=== PATIENT | male | born 1950 | race Caucasian/White ===

== ENCOUNTER 2020-09-26 18:23 | Emergency (ER) | payer MEDICARE, BC ==
[~2020-09-26] VITALS: Ht 172.7 cm; Wt 74.1 kg
[2020-09-26 18:43] VITALS: TEMP 98.3
[2020-09-26] MEDS ORDERED: CEPHALEXIN500 M1 PO (20:36)
[2020-09-26 20:51] VITALS: BP 158/86; PULSE 73
== END 2020-09-26 20:51 | disposition home or self-care (01) ==
LOC: COL.ER 18:23
DX: S61.211A Laceration without foreign body of left index finger without damage to nail, initial encounter (principal); Z87.891 Personal history of nicotine dependence; Z88.4 Allergy status to anesthetic agent; W23.1XXA Caught, crushed, jammed, or pinched between stationary objects, initial encounter